=== PATIENT | female | born 1960 | race Caucasian/White ===

== ENCOUNTER 2020-09-08 09:09 | Outpatient (CLI) | payer OTHER | END 2020-09-08 10:42 | disposition home or self-care (01) | LOC: LAB 09:09 | DX: E11.69 Type 2 diabetes mellitus with other specified complication (principal); E78.49 Other hyperlipidemia; K62.5 Hemorrhage of anus and rectum; Z13.0 Encounter for screening for diseases of the blood and blood-forming organs and certain disorders involving the immune mechanism; Z12.11 Encounter for screening for malignant neoplasm of colon; R79.89 Other specified abnormal findings of blood chemistry; N39.0 Urinary tract infection, site not specified; E11.65 Type 2 diabetes mellitus with hyperglycemia; Z13.29 Encounter for screening for other suspected endocrine disorder; M81.0 Age-related osteoporosis without current pathological fracture; E55.9 Vitamin D deficiency, unspecified; Z13.89 Encounter for screening for other disorder; Z13.9 Encounter for screening, unspecified; R80.8 Other proteinuria ==

== ENCOUNTER 2020-09-08 11:50 | Outpatient (CLI) | payer OTHER | END 2020-09-08 12:03 | disposition home or self-care (01) | LOC: MAMO-SONO 11:50 | DX: Z12.31 Encounter for screening mammogram for malignant neoplasm of breast (principal); Z12.2 Encounter for screening for malignant neoplasm of respiratory organs; Z13.6 Encounter for screening for cardiovascular disorders; I70.0 Atherosclerosis of aorta; I11.9 Hypertensive heart disease without heart failure ==

== ENCOUNTER → 2020-11-19 11:04 | Outpatient (CLI) | payer OTHER | END | disposition home or self-care (01) | LOC: LAB 11:04 | DX: R31.29 Other microscopic hematuria (principal); Z80.0 Family history of malignant neoplasm of digestive organs; N39.0 Urinary tract infection, site not specified; Z12.11 Encounter for screening for malignant neoplasm of colon ==

== ENCOUNTER → 2020-11-19 | Outpatient (CLI) | payer OTHER | END | disposition home or self-care (01) | LOC: MAMO-SONO 12:13 | DX: R94.6 Abnormal results of thyroid function studies (principal); R92.8 Other abnormal and inconclusive findings on diagnostic imaging of breast; N64.4 Mastodynia; R92.2 Inconclusive mammogram; Z80.0 Family history of malignant neoplasm of digestive organs; Z18.89 Other specified retained foreign body fragments; G25.5 Other chorea; D25.9 Leiomyoma of uterus, unspecified; N94.89 Other specified conditions associated with female genital organs and menstrual cycle ==

== ENCOUNTER 2020-12-21 08:47 | Outpatient (CLI) | payer OTHER | END 2020-12-21 08:51 | disposition home or self-care (01) | LOC: SONOGRAMA 08:47 | PROVIDERS: ATTEND Pathology Anatomic Pathology | DX: E04.1 Nontoxic single thyroid nodule (principal) ==

== ENCOUNTER 2021-05-25 10:21 | Outpatient (CLI) | payer OTHER | END 2021-05-25 10:22 | disposition home or self-care (01) | LOC: LAB 10:21 | DX: E11.29 Type 2 diabetes mellitus with other diabetic kidney complication (principal); E11.65 Type 2 diabetes mellitus with hyperglycemia; E11.69 Type 2 diabetes mellitus with other specified complication; E21.1 Secondary hyperparathyroidism, not elsewhere classified; E03.8 Other specified hypothyroidism; I11.9 Hypertensive heart disease without heart failure ==

== ENCOUNTER 2021-11-26 10:11 | Outpatient (CLI) | payer OTHER | END 2021-11-26 10:26 | disposition home or self-care (01) | LOC: LAB 10:11 | PROVIDERS: ATTEND Internal Medicine | DX: E11.69 Type 2 diabetes mellitus with other specified complication (principal); E78.5 Hyperlipidemia, unspecified; K62.5 Hemorrhage of anus and rectum; Z13.0 Encounter for screening for diseases of the blood and blood-forming organs and certain disorders involving the immune mechanism; R79.89 Other specified abnormal findings of blood chemistry; N39.0 Urinary tract infection, site not specified; M81.0 Age-related osteoporosis without current pathological fracture; E03.9 Hypothyroidism, unspecified; N18.2 Chronic kidney disease, stage 2 (mild); I10 Essential (primary) hypertension; R82.90 Unspecified abnormal findings in urine ==

== ENCOUNTER 2021-12-02 13:14 | Outpatient (CLI) | payer OTHER | END 2021-12-02 13:20 | disposition home or self-care (01) | LOC: NUCLEAR 13:14 | PROVIDERS: ATTEND Internal Medicine | DX: M81.0 Age-related osteoporosis without current pathological fracture (principal); M85.80 Other specified disorders of bone density and structure, unspecified site ==

== ENCOUNTER 2022-03-31 10:20 | Outpatient (CLI) | payer OTHER | END 2022-03-31 10:21 | disposition home or self-care (01) | LOC: LAB 10:20 | PROVIDERS: ATTEND Internal Medicine | DX: E11.29 Type 2 diabetes mellitus with other diabetic kidney complication (principal); E11.65 Type 2 diabetes mellitus with hyperglycemia; E11.69 Type 2 diabetes mellitus with other specified complication; E03.9 Hypothyroidism, unspecified; I11.9 Hypertensive heart disease without heart failure; R82.90 Unspecified abnormal findings in urine; E87.8 Other disorders of electrolyte and fluid balance, not elsewhere classified; N18.1 Chronic kidney disease, stage 1 ==

== ENCOUNTER 2022-10-20 09:52 | Outpatient (CLI) | payer OTHER | END 2022-10-20 09:53 | disposition home or self-care (01) | LOC: LAB 09:52 | PROVIDERS: ATTEND Internal Medicine | DX: E11.29 Type 2 diabetes mellitus with other diabetic kidney complication (principal); E11.65 Type 2 diabetes mellitus with hyperglycemia; E11.69 Type 2 diabetes mellitus with other specified complication; I11.9 Hypertensive heart disease without heart failure; E03.9 Hypothyroidism, unspecified; R82.90 Unspecified abnormal findings in urine; R80.9 Proteinuria, unspecified; N18.2 Chronic kidney disease, stage 2 (mild); N39.0 Urinary tract infection, site not specified; Z13.89 Encounter for screening for other disorder; Z13.9 Encounter for screening, unspecified; Z12.11 Encounter for screening for malignant neoplasm of colon; E21.3 Hyperparathyroidism, unspecified; E78.5 Hyperlipidemia, unspecified; R79.89 Other specified abnormal findings of blood chemistry; M81.0 Age-related osteoporosis without current pathological fracture; E55.9 Vitamin D deficiency, unspecified ==

== ENCOUNTER 2022-11-01 08:04 | Outpatient (CLI) | payer OTHER | END 2022-11-01 08:12 | disposition home or self-care (01) | LOC: MAMO-SONO 08:04 | PROVIDERS: ATTEND Internal Medicine | DX: Z12.31 Encounter for screening mammogram for malignant neoplasm of breast (principal); R92.8 Other abnormal and inconclusive findings on diagnostic imaging of breast; N64.4 Mastodynia; Z80.9 Family history of malignant neoplasm, unspecified ==

== ENCOUNTER 2023-05-30 09:44 | Outpatient (CLI) | payer OTHER ==
[2023-05-30 11:27] LABS: BILIRUBIN TOTAL 0.43 mg/dL (0.3-1.2); CALCIUM 9.6 mg/dL (8.5-10.1); CHOL HDL RATIO 2.9 (0-5.0); CREATININE SERUM 0.68 mg/dL (0.55-1.02); GFR 87.96; GLOBULINA 3.6 G/DL (2.4-3.5); POTASSIUM 4.13 mEq/L (3.5-5.1); T4 FREE 1.08 NG/ML (0.76-1.46); TOTAL PROTEIN 7.6 gm/dL (6.4-8.2); TSH 2.09 uIU/mL (0.358-3.74)
== END 2023-05-30 09:45 | disposition home or self-care (01) ==
LOC: LAB 09:44
PROVIDERS: ATTEND Internal Medicine
DX: E11.29 Type 2 diabetes mellitus with other diabetic kidney complication (principal); E11.65 Type 2 diabetes mellitus with hyperglycemia; E11.69 Type 2 diabetes mellitus with other specified complication; I11.9 Hypertensive heart disease without heart failure; E03.9 Hypothyroidism, unspecified; R80.9 Proteinuria, unspecified; E78.5 Hyperlipidemia, unspecified; E21.3 Hyperparathyroidism, unspecified

== ENCOUNTER → 2024-01-15 09:27 | Outpatient (CLI) | payer OTHER ==
[2024-01-15 10:31] LABS: HEMATOCRIT 38.5 % (36.0-45.00); HEMOGLOBIN 12.7 g/dL (12.0-15.00); MEAN CELL VOLUME 83.1 fL (80.00-100.00); MEAN CORPUSCULAR HEMOGLOBIN 27.3 pg (27.00-32.0); MEAN CORPUSCULAR HGB CONC 32.9 g/dl (32.0-36.0); PLATELET COUNT 286 K/uL (150-450); RED BLOOD COUNT 4.63 M/uL (4.00-6.00)
[2024-01-15 10:47] LABS: PH,URINE 5.5 (5.0-8.0); URINE APPEARANCE Clear; URINE BILIRRUBIN Negative (NEGATIVE); URINE BLOOD Moderate; URINE COLOR Yellow; URINE GLUCOSE Negative (NEGATIVE); URINE LEUKOCYTE Negative; URINE NITRATE Negative; URINE PROTEIN Negative (NEGATIVE); URINE UROBILINOGEN 0.2 E.U./dl
[2024-01-15 10:49] LABS: URINE EPITHELIAL CELLS 2.6 uL (0.0-38.8); URINE RBC 25.4 uL (0.0-20.8); URINE WBC 1.8 uL (0.0-23.2)
[2024-01-15 11:28] LABS: ALBUMIN 4.2 gm/dL (3.4-5.0); BILIRUBIN TOTAL 0.64 mg/dL (0.3-1.2); CALCIUM 9.7 mg/dL (8.5-10.1); CHOL HDL RATIO 3.3 (0-5.0); CREATININE SERUM 0.69 mg/dL (0.55-1.02); GFR 86.49; GLOBULINA 3.5 G/DL (2.4-3.5); POTASSIUM 4.72 mEq/L (3.5-5.1); TOTAL PROTEIN 7.7 gm/dL (6.4-8.2); URIC ACID 4.6 mg/dL (2.5-7.5)
[2024-01-15 11:49] LABS: T4 FREE 1.11 NG/ML (0.76-1.46); TSH 1.33 uIU/mL (0.358-3.74)
== END | disposition home or self-care (01) ==
LOC: LAB 09:27
PROVIDERS: ATTEND Internal Medicine
DX: E11.29 Type 2 diabetes mellitus with other diabetic kidney complication (principal); E11.65 Type 2 diabetes mellitus with hyperglycemia; E11.69 Type 2 diabetes mellitus with other specified complication; E11.9 Type 2 diabetes mellitus without complications; I11.9 Hypertensive heart disease without heart failure; E03.9 Hypothyroidism, unspecified; R82.90 Unspecified abnormal findings in urine; R80.9 Proteinuria, unspecified; Z13.89 Encounter for screening for other disorder; Z13.9 Encounter for screening, unspecified; E79.0 Hyperuricemia without signs of inflammatory arthritis and tophaceous disease; N18.2 Chronic kidney disease, stage 2 (mild)

== ENCOUNTER 2024-01-15 10:10 | Outpatient (CLI) | payer OTHER | END 2024-01-15 10:21 | disposition home or self-care (01) | LOC: MAMO-SONO 10:10 | PROVIDERS: ATTEND Internal Medicine | DX: Z12.31 Encounter for screening mammogram for malignant neoplasm of breast (principal) ==

== ENCOUNTER 2024-06-06 09:29 | Outpatient (CLI) | payer OTHER ==
[2024-06-06 10:13] LABS: URINE APPEARANCE Clear; URINE BILIRRUBIN Negative (NEGATIVE); URINE BLOOD Moderate; URINE COLOR Yellow; URINE GLUCOSE Negative (NEGATIVE); URINE KETONE Negative (NEGATIVE); URINE LEUKOCYTE Negative; URINE NITRATE Negative; URINE PROTEIN Negative (NEGATIVE); URINE UROBILINOGEN 0.2 E.U./dl
[2024-06-06 10:17] LABS: URINE BACTERIA 6.1 uL (0.0-1933); URINE EPITHELIAL CELLS 1.7 uL (0.0-38.8); URINE RBC 73.2 uL (0.0-20.8); URINE WBC 2.5 uL (0.0-23.2)
[2024-06-06 10:19] LABS: URINE CAST 0.14 uL (0.0-1.40)
[2024-06-06 11:17] LABS: ALBUMIN 4.4 gm/dL (3.4-5.0); CREATININE SERUM 0.75 mg/dL (0.55-1.02); GFR 78.3; PHOSPHOROUS 3.5 mg/dL (2.5-4.9); POTASSIUM 4.42 mEq/L (3.5-5.1)
== END 2024-06-06 09:36 | disposition home or self-care (01) ==
LOC: LAB 09:29
PROVIDERS: ATTEND Internal Medicine
DX: R31.29 Other microscopic hematuria (principal); N18.2 Chronic kidney disease, stage 2 (mild); E11.9 Type 2 diabetes mellitus without complications

== ENCOUNTER 2024-06-06 09:47 | Outpatient (CLI) | payer OTHER | END 2024-06-06 09:52 | disposition home or self-care (01) | LOC: SONOGRAMA 09:47 | PROVIDERS: ATTEND Internal Medicine | DX: N18.2 Chronic kidney disease, stage 2 (mild) (principal); Q61.3 Polycystic kidney, unspecified; I11.9 Hypertensive heart disease without heart failure; R31.29 Other microscopic hematuria ==

== ENCOUNTER 2024-07-22 07:17 | Outpatient (CLI) | payer OTHER ==
[2024-07-22 09:14] LABS: CALCIUM 9.7 mg/dL (8.5-10.1); CREATININE SERUM 0.74 mg/dL (0.55-1.02); GFR 79.52; PHOSPHOROUS 3.7 mg/dL (2.5-4.9); POTASSIUM 4.48 mEq/L (3.5-5.1)
== END 2024-07-22 07:23 | disposition home or self-care (01) ==
LOC: LAB 07:17
PROVIDERS: ATTEND Internal Medicine
DX: N18.2 Chronic kidney disease, stage 2 (mild) (principal)

== ENCOUNTER 2024-07-22 07:37 | Outpatient (CLI) | payer OTHER | END 2024-07-22 07:51 | disposition home or self-care (01) | LOC: MRI 07:37 | PROVIDERS: ATTEND Internal Medicine | DX: R31.9 Hematuria, unspecified (principal); N28.1 Cyst of kidney, acquired; C64.9 Malignant neoplasm of unspecified kidney, except renal pelvis | CPT/HCPCS: 74183 ==

== ENCOUNTER 2024-11-08 09:40 | Outpatient (CLI) | payer OTHER ==
[2024-11-08 10:57] LABS: HEMATOCRIT 38.9 % (36.0-45.00); HEMOGLOBIN 12.9 g/dL (12.0-15.00); MEAN CELL VOLUME 81.7 fL (80.00-100.00); MEAN CORPUSCULAR HEMOGLOBIN 27.1 pg (27.00-32.0); MEAN CORPUSCULAR HGB CONC 33.2 g/dl (32.0-36.0); PLATELET COUNT 259 K/uL (150-450); RED BLOOD COUNT 4.76 M/uL (4.00-6.00); RED CELL DISTRIBUTION WIDTH 13.9 % (11.5-14.5)
[2024-11-08 11:08] LABS: URINE APPEARANCE Clear; URINE BILIRRUBIN Negative (NEGATIVE); URINE BLOOD Small; URINE COLOR Yellow; URINE GLUCOSE Negative (NEGATIVE); URINE KETONE Negative (NEGATIVE); URINE LEUKOCYTE Negative; URINE NITRATE Negative; URINE PROTEIN Negative (NEGATIVE); URINE UROBILINOGEN 0.2 E.U./dl
[2024-11-08 11:09] LABS: URINE RBC 31.3 uL (0.0-20.8)
[2024-11-08 11:11] LABS: URINE BACTERIA 2.4 uL (0.0-1933); URINE EPITHELIAL CELLS 0.6 uL (0.0-38.8); URINE WBC 1.5 uL (0.0-23.2)
[2024-11-08 11:34] LABS: ob NEGATIVE (NEGATIVE)
[2024-11-08 11:45] LABS: URIC ACID 4.7 mg/dL (2.5-7.5)
[2024-11-08 11:57] LABS: ALBUMIN 4.1 gm/dL (3.4-5.0); BILIRUBIN TOTAL 0.48 mg/dL (0.3-1.2); CALCIUM 9.6 mg/dL (8.5-10.1); CREATININE SERUM 0.74 mg/dL (0.55-1.02); GFR 79.52; GLOBULINA 3.6 G/DL (2.4-3.5); POTASSIUM 5.29 mEq/L (3.5-5.1); T4 FREE 1.22 NG/ML (0.76-1.46); TOTAL PROTEIN 7.7 gm/dL (6.4-8.2); TSH 1.32 uIU/mL (0.358-3.74)
== END 2024-11-08 09:49 | disposition home or self-care (01) ==
LOC: LAB 09:40
PROVIDERS: ATTEND Internal Medicine
DX: E11.9 Type 2 diabetes mellitus without complications (principal); I11.9 Hypertensive heart disease without heart failure; N18.2 Chronic kidney disease, stage 2 (mild); Z13.9 Encounter for screening, unspecified; E11.65 Type 2 diabetes mellitus with hyperglycemia; E11.29 Type 2 diabetes mellitus with other diabetic kidney complication; E87.8 Other disorders of electrolyte and fluid balance, not elsewhere classified; Z13.89 Encounter for screening for other disorder; R79.89 Other specified abnormal findings of blood chemistry; E78.5 Hyperlipidemia, unspecified; E03.9 Hypothyroidism, unspecified; E11.69 Type 2 diabetes mellitus with other specified complication; M81.0 Age-related osteoporosis without current pathological fracture; E55.9 Vitamin D deficiency, unspecified; E21.3 Hyperparathyroidism, unspecified; Z13.0 Encounter for screening for diseases of the blood and blood-forming organs and certain disorders involving the immune mechanism; R80.9 Proteinuria, unspecified; I10 Essential (primary) hypertension; R82.90 Unspecified abnormal findings in urine

== ENCOUNTER 2025-02-06 07:36 | Outpatient (CLI) | payer OTHER ==
[2025-02-06 09:13] LABS: BUN CREA RATIO 21.0 (7.0-25.0); CREATININE SERUM 0.76 mg/dL (0.55-1.02); GFR 77.11; GLUCOSE FASTING 97.0 mg/dL (65-100); OSMOLALITY SERUM 282.0 MOSM/KG (275-295); T4 FREE 1.18 NG/ML (0.76-1.46); TSH 1.55 uIU/mL (0.358-3.74)
== END 2025-02-06 07:37 | disposition home or self-care (01) ==
LOC: LAB 07:36
PROVIDERS: ATTEND Internal Medicine
DX: N18.2 Chronic kidney disease, stage 2 (mild) (principal); E11.9 Type 2 diabetes mellitus without complications; E03.9 Hypothyroidism, unspecified

== ENCOUNTER 2025-02-06 08:05 | Outpatient (CLI) | payer OTHER | END 2025-02-06 08:10 | disposition home or self-care (01) | LOC: MAMO-SONO 08:05 | PROVIDERS: ATTEND Internal Medicine | DX: Z12.31 Encounter for screening mammogram for malignant neoplasm of breast (principal) ==

== ENCOUNTER 2025-05-14 07:33 | Outpatient (CLI) | payer OTHER ==
[2025-05-14 09:43] LABS: ALT/SGPT 20.0 U/L (12-78); AST/SGOT 13.0 U/L (15-37); BILIRUBIN TOTAL 0.62 mg/dL (0.3-1.2); BUN CREA RATIO 22.0 (7.0-25.0); CHOL HDL RATIO 2.5 (0-5.0); CREATININE SERUM 0.74 mg/dL (0.55-1.02); GFR 79.26; GLOBULINA 3.6 G/DL (2.4-3.5); GLUCOSE FASTING 110.0 mg/dL (65-100); HDL 55.0 mg/dl (40-60); LDL 63.0 mg/dl (0-130); OSMOLALITY SERUM 281.0 MOSM/KG (275-295); T4 FREE 1.27 NG/ML (0.76-1.46); TSH 1.75 uIU/mL (0.358-3.74); VLDL 22.0 (0-39)
== END 2025-05-14 07:41 | disposition home or self-care (01) ==
LOC: LAB 07:33
PROVIDERS: ATTEND Internal Medicine
DX: E11.9 Type 2 diabetes mellitus without complications (principal); I11.9 Hypertensive heart disease without heart failure; N18.2 Chronic kidney disease, stage 2 (mild); R79.89 Other specified abnormal findings of blood chemistry; E78.5 Hyperlipidemia, unspecified; E03.9 Hypothyroidism, unspecified; E11.69 Type 2 diabetes mellitus with other specified complication; E11.29 Type 2 diabetes mellitus with other diabetic kidney complication; E87.8 Other disorders of electrolyte and fluid balance, not elsewhere classified

== ENCOUNTER 2025-05-14 08:47 | Outpatient (CLI) | payer OTHER | END 2025-05-14 08:50 | disposition home or self-care (01) | LOC: SONOGRAMA 08:47 | PROVIDERS: ATTEND Internal Medicine | DX: E04.1 Nontoxic single thyroid nodule (principal) ==